=== PATIENT | female | born 1990 | race Caucasian/White ===

== ENCOUNTER 2023-12-04 08:00 | Inpatient (IN) | payer OTHER ==
[2023-12-04 12:05] VITALS: BMI 31.4
[2023-12-04] MEDS: ELECTROLYTE-148 SOLN 500 ML IV ONE (12:10)
[2023-12-04] MEDS: ELECTROLYTE-148 SOLN 1,000 ML IV SCH (12:40)
[2023-12-04] MEDS: CITRIC ACID/SODIUM CITRATE 30 ML UNIT-DOSE CUP PO ONE (15:00)
[2023-12-04] MEDS ORDERED: ONDANSETRON 4 MG/2 ML VIAL IVPUSH PRN (15:40)
[2023-12-04] MEDS ORDERED: IBUPROFEN 600 MG TABLET (FP) PO PRN (15:40)
[2023-12-04] MEDS ORDERED: ACETAMINOPHEN 325 MG TABLET (FP) PO PRN (15:40)
[2023-12-04] MEDS ORDERED: morphine SULFATE/PF 1 MG/2 ML (2cc Syringe - QUVA) ONE (15:45)
[2023-12-04] MEDS ORDERED: SODIUM CHLORIDE 0.9% P/F 10 ML VIAL IJ ONE (15:46)
[2023-12-04] MEDS ORDERED: ceFAZolin SODIUM 1 GM VIAL ONE (15:46)
[2023-12-04] MEDS ORDERED: PHENYLEPHRINE HCL 10 MG/1 ML SINGLE DOSE VIAL ONE (15:58)
[2023-12-04] MEDS ORDERED: OXYTOCIN 10 UNITS/ML VIAL ONE (16:14)
[2023-12-04] MEDS ORDERED: METOCLOPRAMIDE HCL INJECTION 10 MG/2 ML VIAL ONE (16:20)
[2023-12-04] MEDS ORDERED: ONDANSETRON 4 MG/2 ML VIAL ONE (16:20)
[2023-12-04] MEDS ORDERED: MIDAZOLAM HCL 2 MG/2 ML SINGLE DOSE VIAL ONE (16:49)
[2023-12-04] MEDS ORDERED: OXYTOCIN 20 UNITS in 0.9% NS 20 UNIT/1,000 ML INFUS.BAG IV ONE ×2 (17:00→18:28)
[2023-12-04 17:13] LABS: CORD BASE EXCESS -1.5 mmol/L (0-2); CORD HCO3 24.7 mmHg (20-29); CORD HCO3 24.9 mmHg (20-29); CORD PCO2 47.1 mmHg (30-78); CORD PCO2 63.6 mmHg (30-78); CORD pH 7.211 (7.14-7.44); CORD pH 7.338 (7.14-7.44)
[2023-12-04] MEDS ORDERED: ONDANSETRON 4 MG/2 ML VIAL IVPB PRN (17:15)
[2023-12-04] MEDS ORDERED: oxyCODONE HCL 5 MG TABLET PO PRN (17:15)
[2023-12-04] MEDS ORDERED: ACETAMINOPHEN 1000 MG/100 ML BAG IVPB PRN (17:15)
[2023-12-04] MEDS: METHYLERGONOVINE MALEATE 0.2 MG/1 ML AMP IM ONE (18:20)
[2023-12-04] MEDS: OXYTOCIN 20 UNITS in 0.9% NS 20 UNIT/1,000 ML INFUS.BAG IV SCH (18:40)
[2023-12-04] MEDS ORDERED: IBUPROFEN 800 MG/8 ML IJ IVPB ONE (19:48)
[2023-12-04] MEDS: IBUPROFEN 800 MG/8 ML IJ IVPB PRN (19:57)
[2023-12-04] MEDS: SENNOSIDES/DOCUSATE COMBO (SENNA PLUS) TABLET (UD) PO SCH (22:00)
[2023-12-05] MEDS: morphine SULFATE/PF 1 MG/2 ML (2cc Syringe - QUVA) EP ONE (08:51)
[2023-12-05 08:56] LABS: BASO % 0.2 % (0-2.0); EOS % 0.2 % (0-4.5); HEMATOCRIT 34.8 % (32.4-45.2); LYMPH % 17.3 % (8-40); MCH 31.5 pg (25.7-33.7); MCHC 34.6 g/dl (32.0-36.0); MEAN PLT VOLUME 10.2 fl (7.5-11.1); NEUT % 78.3 % (42.8-82.8); PLATELET COUNT 131 10^3/uL (134-434); RBC 3.82 M/mm3 (3.60-5.2); RDW 13.7 % (11.6-15.6); WHITE BLOOD COUNT 10.1 K/mm3 (4.0-10.0)
[2023-12-05] MEDS: ACETAMINOPHEN 325 MG TABLET (FP) PO PRN (09:23)
[2023-12-05] MEDS: SIMETHICONE 80 MG TAB.CHEW (FP) PO PRN (16:05)
[2023-12-05] MEDS ORDERED: BISACODYL 10 MG SUPP.RECT RC PRN (17:15)
[2023-12-05] MEDS: IBUPROFEN 600 MG TABLET (FP) PO PRN (17:45)
[2023-12-06 09:10] VITALS: RESP 16
[2023-12-06 09:12] VITALS: BP 127/81; PULSE 83; TEMP 98
== END 2023-12-06 14:37 | disposition home or self-care (01) | DRG 540 ==
LOC: JDEL 08:00 → JLDR 11:20 → J3W 20:17
PROVIDERS: ADMIT Family Medicine; ATTEND Family Medicine
PROC: 10D00Z1 Extraction of Products of Conception, Low, Open Approach (ICD-10-PCS; principal; 2023-12-04)
DX: O32.1XX0 Maternal care for breech presentation, not applicable or unspecified (principal); O34.211 Maternal care for low transverse scar from previous cesarean delivery; N85.8 Other specified noninflammatory disorders of uterus; Z3A.39 39 weeks gestation of pregnancy; Z37.0 Single live birth
CPT/HCPCS: 36415; 36600; 59025; 59409; 80053; 81003; 82803; 85025; 85610; 86850; 86900; 86901; 88307-TC; 94010